=== PATIENT | male | born 1950 | race Caucasian/White ===

== ENCOUNTER 2018-06-21 20:05 | Emergency (ER) | payer MEDICARE ==
[2018-06-21 23:25] LABS: ADD MAN DIFF? NO
[2018-06-21] MEDS: morphine 4 MG/ML VIAL IV (23:26)
[2018-06-21] MEDS: ONDANSETRON 4 MG INJ IV (23:26)
[2018-06-21] MEDS: LIDOCAINE/MYLANTA 40 ML BTL PO (23:26)
[2018-06-21] MEDS: FAMOTIDINE 20 MG TAB PO (23:26)
[2018-06-21 23:28] LABS: BASOPHILS % 0.3 % (0.0-2.0); EOSINOPHILS % 0.1 % (0.0-7.0); HEMATOCRIT 44.5 % (42.0-52.0); HEMOGLOBIN 14.9 g/dl (14.0-18.0); LYMPHOCYTES # 0.8 10^3/ul (0.8-2.9); LYMPHOCYTES % 8.5 % (15.0-51.0); MEAN CORPUSCULAR HEMOGLOBIN 30.3 pg (29.0-33.0); MEAN CORPUSCULAR HGB CONC 33.5 g/dl (32.0-37.0); MEAN CORPUSCULAR VOLUME 90.4 fl (82.0-101.0); MEAN PLATELET VOLUME 9.1 fl (7.4-10.4); MONOCYTE # 0.4 10^3/ul (0.3-0.9); MONOCYTES % 4.4 % (0.0-11.0); NEUTROPHIL # 8.2 10^3/ul (1.6-7.5); NEUTROPHILS % 86.3 % (39.0-77.0); PLATELET COUNT 231 10^3/UL (140-415); RED BLOOD COUNT 4.92 10^6/ul (4.70-6.10); RED CELL DISTRIBUTION WIDTH 12.6 % (11.5-14.5)
[2018-06-21 23:28] LABS: WHITE BLOOD COUNT 9.5 10^3/ul (4.8-10.8)
[2018-06-21 23:46] LABS: ALANINE AMINOTRANSFERASE 29 IU/L (13-69); ALBUMIN 4.9 g/dl (3.3-4.9); ALBUMIN/GLOBULIN RATIO 1.32; ALKALINE PHOSPHATASE 86 IU/L (42-121); ANION GAP 14 (5-13); ASPARTATE AMINO TRANSFERASE 35 IU/L (15-46); BILIRUBIN,INDIRECT 0.5 mg/dl (0-1.1); BILIRUBIN,TOTAL 0.5 mg/dl (0.2-1.3); BLOOD UREA NITROGEN 18 mg/dl (7-20); CARBON DIOXIDE 27 mmol/L (21-31); CHLORIDE 95 mmol/L (97-110); CREATININE 0.62 mg/dl (0.61-1.24); Estimated GFR > 60 mL/min (>60); GLUCOSE 134 mg/dl (70-220); LIPASE 41 U/L (23-300); POTASSIUM 4.3 mmol/L (3.5-5.1); SODIUM 136 mmol/L (135-144); TOTAL PROTEIN 8.6 g/dl (6.1-8.1)
== END 2018-06-22 01:36 | disposition home or self-care (01) ==
LOC: E/R 06-22 01:36
DX: R10.13 Epigastric pain (principal); R11.10 Vomiting, unspecified; Z79.84 Long term (current) use of oral hypoglycemic drugs
CPT/HCPCS: 36415; 71045; 80053; 83690; 85025; 93005; 96374; 96375; 99285-25